=== PATIENT | female | born 1970 | race Caucasian/White ===

== ENCOUNTER 2020-12-26 17:17 | Emergency (ER) | payer OTHER ==
[~2020-12-26] VITALS: Ht 165.1 cm; Wt 77.1 kg
[2020-12-26 17:28] VITALS: BP 150/98
[2020-12-26] MEDS ORDERED: LIDOCAINE MPF 1% 10 MG/ML VIAL INJ ONE (18:00)
[2020-12-26] MEDS ORDERED: IBUPROFEN 600 MG TAB PO ONE (18:00)
[2020-12-26] MEDS ORDERED: BACITRACIN OINT 500 UNITS/GM PKT TP ONE ×2 (18:38→18:40)
[2020-12-26] MEDS ORDERED: IBUP-2213 PO (18:47)
[2020-12-26] MEDS ORDERED: CEPH-588 PO (18:47)
[2020-12-26] MEDS ORDERED: BACI1PAC6 TP (18:47)
[2020-12-26] MEDS ORDERED: NOVN SUBQ (18:47)
[2020-12-26 19:00] VITALS: BP 150/98
== END 2020-12-26 19:00 | disposition home or self-care (01) ==
LOC: MED 17:17
DX: S91.312A Laceration without foreign body, left foot, initial encounter (principal); W22.8XXA Striking against or struck by other objects, initial encounter; Y93.89 Activity, other specified; Y92.89 Other specified places as the place of occurrence of the external cause; Y99.8 Other external cause status
CPT/HCPCS: 12001; 73630; 90471; 90715; 99283; J2001